=== PATIENT | male | born 1980 | race Caucasian/White ===

== ENCOUNTER 2019-06-14 22:14 | Emergency (ER) | payer OTHER, SELFPAY ==
[2019-06-14 22:14] VITALS: BP 163/108; PULSE 86; RESP 15; TEMP 37.2; O2SAT 95; BMI 28.5
--- NOTE | 2019-06-14 22:35 | ED.VIS.LOWEX ---
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 Negative for: Parasthesia, Weakness Narrative: Patient was kicking a ball and twisted his knee felt a pop and had sudden excruciating pain and loss of function, brought by EMS. Patient has never had a dislocation before. Past Medical History - Allergies and Home Meds Allergies/Adverse Reactions: Allergies No Known Allergies Allergy (Verified 06/14/19 22:20) Primary Care Physician: Jas Ortiz [NON-STAFF] - Past Medical History: None Lives: With Family Smoking Status: Never smoker Review of Systems General: Denies: Chills, Fever, Sweats Eyes: Denies: Visual changes - bilaterally, Diplopia ENT: Denies: Rhinorrhea, Sore throat Cardiovascular: Denies: Chest pain, Palpitations Respiratory: Denies: Dyspnea, Cough, Dyspnea on exertion Gastrointestinal: Denies: Abdominal pain, Nausea, Vomiting, Diarrhea, Melena, Hematochezia Genitourinary: Denies: Dysuria, Hematuria, Frequency Musculoskeletal: Reports: Extremity Pain. Denies: Back pain Skin: Denies: Rash, Wounds Neurological: Denies: Headache, Weakness, Numbness Physical Exam Vital Signs/Narrative: Vital Signs Temp Pulse Resp BP Pulse Ox 06/14/19 22:14 98.9 F 86 15 163/108 H 95 Inital Vital Signs reviewed: Yes - Extremity Exam Right Knee: Limited ROM - Patient splinted with an obvious lateral patella dislocation, where he has tenderness but there is no other lateral or medial knee bony tenderness. Not able to move due to pain., - - Other 3 extremities are atraumatic, full range of motion throughout. Limited range of motion of the right hip and ankle due to pain at the knee but no tenderness. General: Well nourished, Well developed Head: Normocephalic, Atraumatic Eyes: Perrl, EOMI Neck: Nontender, Full ROM Skin: Normal color, No rash, No Trauma - Skin intact right lower extremity Neurological: Alert, Oriented x3, Cranial nerves II-XII grossly intact, Normal Strength - Able to wiggle toes right lower extremity, Normal Sensation Psychological: Normal affect, Normal Mood Diagnostic/Tx/Re-eval - Medical Decision Making Patient was in a lot of pain despite getting morphine from EMS, and he ate dinner around 3 hours prior to arrival. Therefore, after discussing pros and cons of waiting/delaying versus only moderate sedation rather than deep sedation, they were amenable to moderate sedation and closed reduction. He was given Versed 2 mg for that, closed reduction was not uncomplicated. His knee is clinically unstable with his MCL and ACL clinically torn, he is placed in a knee immobilizer. Discussed this with Dr. Puentes, stressing the medial instability clinically and evident on x-ray with joint line opening up widely medially. He recommends discharging the patient on crutches and a knee immobilizer to be seen on Monday in the office, as urgent surgery would not be indicated given the swelling. Procedures Procedure(s): Closed reduction right patella dislocation --patient's knee was straightened, the patella reduced easily. His dorsalis pedis pulse was 2+/4 before and after the procedure, and neurologically intact before and after. It was clear that his knee was unstable clinically, however afterwards and it was further examined. His MCL feels completely ruptured, as there is significant laxity as the leg tends toward a valgus deformity. The LCL appears to be intact. There is an abnormal Su with ACL laxity, but the posterior drawer is negative. ED Disposition - Plan for ED Patient: Disposition: Home or Assisted Living Diagnosis: Lateral dislocation of right patella, initial encounter, Traumatic tear of medial collateral ligament of right knee, Right ACL tear Instructions: Patellar Dislocation / Subluxation, Surgery for Anterior Cruciate Ligament (ACL) Injury Prescriptions: Oxycodone HCl/Acetaminophen [Percocet 5/325] 1 tab PO Q6H PRN PRN 5 Days #20 tab PRN Reason: Pain Prescription Printed Referrals: Jas Ortiz [NON-STAFF] - Segundo Puentes DO [STAFF PHYSICIAN] - 06/18/19 (call for time)
[2019-06-14 22:37] VITALS: BP 153/84; PULSE 85; RESP 15; O2SAT 95
[2019-06-14] MEDS: Midazolam 2 MG/2 ML Syringe IV (22:41)
[2019-06-14 22:46] VITALS: BP 145/91; PULSE 89; RESP 15; O2SAT 94
[2019-06-14 22:51] VITALS: BP 155/93; PULSE 85; RESP 15; O2SAT 96
--- NOTE | 2019-06-14 22:55 | RAD_ITS ---
STUDY: X-RAY - RIGHT KNEE REASON FOR EXAM: Male, 39 years old. Injury. Pain. Question dislocation. TECHNIQUE: 3 view(s) of the knee. COMPARISON: None. FINDINGS: Normal visualized distal femur. Normal visualized proximal tibia and fibula. Normal proximal tibiofibular articulation. There is apparent lateral subluxation of the femoral patellar articulation with marked widening of the medial joint space with the lateral condyle overlying the tibial spine. There is mild lateral subluxation on the patellofemoral articulation. There is a large volume joint effusion. There is marked swelling of the surrounding soft tissues. RAD/Knee 4 or More Views IMPRESSION: Lateral subluxation of the femoral tibial articulation of the knee with large joint effusion. There is no visualized fracture. Electronically Signed: Dyllan Robertson DO at 23:19 EDT Tel [phone], Service support ,
[2019-06-14 22:56] VITALS: BP 155/94; PULSE 80; RESP 15; O2SAT 97
[2019-06-14 23:11] VITALS: BP 140/90; PULSE 90; RESP 15; O2SAT 94
[2019-06-14] MEDS: Morphine 4 MG/ML Syringe IV (23:42)
[2019-06-15 00:03] VITALS: BP 150/93; PULSE 75; RESP 15; O2SAT 96
== END 2019-06-15 00:10 | disposition home or self-care (01) ==
PROVIDERS: Emergency Provider Emergency Medicine; Family Provider Family Medicine; PCP Family Medicine
DX: S83.014A Lateral dislocation of right patella, initial encounter (principal); S83.411A Sprain of medial collateral ligament of right knee, initial encounter; S83.511A Sprain of anterior cruciate ligament of right knee, initial encounter; X50.1XXA Overexertion from prolonged static or awkward postures, initial encounter; Y93.9 Activity, unspecified; Y92.9 Unspecified place or not applicable
CPT/HCPCS: 27560; 73564; 96374; 96375; 99285; J7030